=== PATIENT | female | born 1935 | race Caucasian/White ===

== ENCOUNTER → 2018-03-23 | Outpatient (CLI) | payer MEDICARE, OTHER ==
[~2018-03-23] MED LIST: ACIDOPHILUS1 EAC1 PO; ALEN70 PO; ASPI81CH PO; Combigan Eye Dro5 ML OP; Imitrex50 MG; LATA.005SO BOTHEYES; LEVSOD50 PO; LIDO5TP; Lialda1.2 GM PO; MIDOL PO; Norco 5-325 Ta1 EACH PO; RANI150 PO; Toprol Xl25 MG PO; VAGIFEM10 MCG VG
[2018-03-23 14:34] LABS: Candida species (DNA Probe) Negative (NEGATIVE); G. vaginalis (DNA Probe) Positive (NEGATIVE); T. vaginalis (DNA Probe) Negative (NEGATIVE)
== END ==
LOC: LAB 11:57 → LAB SHORT 11:57
PROVIDERS: Obstetrics & Gynecology
DX: N76.0 Acute vaginitis (principal)
CPT/HCPCS: 87480; 87510; 87660

== ENCOUNTER 2020-06-19 15:49 | Inpatient (IN) | payer MEDICARE, OTHER ==
[~2020-06-19] VITALS: Ht 160 cm; Wt 55.5 kg
[~2020-06-19 15:49] MED LIST changes: -Combigan Eye Dro5 ML OP; -LATA.005SO BOTHEYES; -LEVSOD50 PO; -Lialda1.2 GM PO; -Toprol Xl25 MG PO
[2020-06-19 16:34] LABS: BASOPHILS ABSOLUTE AUTO 0.02 K/mm3 (0.00-0.23); BASOPHILS PERCENT AUTO 0 % (0-2); EOSINOPHILS PERCENT AUTO 0 % (0-6); Hematocrit 45.4 % (33.0-51.0); Hemoglobin 14.2 g/dL (11.5-16.0); IMMATURE GRAN ABSOLUTE AUTO 0.02 K/mm3 (0.00-0.10); IMMATURE GRAN PERCENT AUTO 0 % (0-1); LYMPHOCYTES ABSOLUTE AUTO 1.26 K/mm3 (0.84-5.20); LYMPHOCYTES PERCENT AUTO 23 % (21-46); MONOCYTES ABSOLUTE AUTO 0.74 K/mm3 (0.16-1.47); MONOCYTES PERCENT AUTO 14 % (4-13); Mean Corpuscular HGB 29.8 pg (26.0-34.0); Mean Corpuscular HGB Conc 31.3 g/dL (31.5-36.5); Mean Corpuscular Volume 95 fL (80-100); Mean Platelet Volume 10.2 fL (9.1-12.4); NEUTROPHILS ABSOLUTE AUTO 3.37 K/mm3 (1.96-9.15); NEUTROPHILS PERCENT AUTO 62 % (41-73); Platelet Count 168 K/mm3 (150-400); RDW Coefficient Variation 14.1 % (11.7-14.2); Red Blood Cell Count 4.76 M/mm3 (3.80-5.20); White Blood Cell Count 5.41 K/mm3 (4.00-11.30)
[2020-06-19 16:45] LABS: Albumin, Blood 3.7 g/dL (3.4-5.0); Albumin/Globulin Ratio 0.9 (0.8-1.8); Bilirubin, Total 0.4 mg/dL (0.1-1.0); Bun/Creatinine Ratio 17.6 (12.0-20.0); Calcium, Blood 8.8 mg/dL (8.5-10.1); Creatinine, Blood 1.36 mg/dL (0.40-1.00); Globulin, Blood 3.9 g/dL (2.2-4.0); Potassium, Blood 4.9 mmol/L (3.5-5.5); Total Protein, Blood 7.6 g/dL (6.4-8.2)
[2020-06-19 16:50] LABS: International Normalized Ratio 0.98; Prothrombin Time Results 10.5 Sec (9.7-11.5)
[2020-06-19] MEDS ORDERED: Toprol Xl25 MG PO (18:30)
[2020-06-19] MEDS ORDERED: LATA.005SO BOTHEYES (18:30)
[2020-06-19] MEDS ORDERED: EUTHYROX50 MCG PO (18:30)
[2020-06-19] MEDS ORDERED: FAMO20 PO (18:31)
[2020-06-19] MEDS ORDERED: MESALAMINE800 MG PO (18:32)
[2020-06-19] MEDS ORDERED: IPRATROPIUM BRO30 ML (18:41)
[2020-06-19] MEDS ORDERED: Aspir 8181 MG PO (20:25)
[2020-06-19] MEDS ORDERED: COMBIGAN 0.2%-0.5 ML BOTHEYES (20:25)
[2020-06-19] MEDS ORDERED: ACIDOPHILUS1 EAC3 PO (20:27)
[2020-06-20 04:29] LABS: BASOPHILS ABSOLUTE AUTO 0.02 K/mm3 (0.00-0.23); BASOPHILS PERCENT AUTO 0 % (0-2); EOSINOPHILS PERCENT AUTO 0 % (0-6); Hematocrit 43.5 % (33.0-51.0); Hemoglobin 14.1 g/dL (11.5-16.0); IMMATURE GRAN ABSOLUTE AUTO 0.01 K/mm3 (0.00-0.10); IMMATURE GRAN PERCENT AUTO 0 % (0-1); LYMPHOCYTES ABSOLUTE AUTO 1.21 K/mm3 (0.84-5.20); LYMPHOCYTES PERCENT AUTO 24 % (21-46); MONOCYTES ABSOLUTE AUTO 0.69 K/mm3 (0.16-1.47); MONOCYTES PERCENT AUTO 14 % (4-13); Mean Corpuscular HGB 29.9 pg (26.0-34.0); Mean Corpuscular HGB Conc 32.4 g/dL (31.5-36.5); Mean Corpuscular Volume 92 fL (80-100); Mean Platelet Volume 9.6 fL (9.1-12.4); NEUTROPHILS ABSOLUTE AUTO 3.18 K/mm3 (1.96-9.15); NEUTROPHILS PERCENT AUTO 62 % (41-73); Platelet Count 148 K/mm3 (150-400); RDW Coefficient Variation 14.1 % (11.7-14.2); RDW Standard Deviation 47.7 fL (35.1-46.3); Red Blood Cell Count 4.71 M/mm3 (3.80-5.20); White Blood Cell Count 5.11 K/mm3 (4.00-11.30)
[2020-06-20 04:51] LABS: Bun/Creatinine Ratio 17.3 (12.0-20.0); Calcium, Blood 8.9 mg/dL (8.5-10.1); Creatinine, Blood 0.98 mg/dL (0.40-1.00); Potassium, Blood 3.8 mmol/L (3.5-5.5)
--- NOTE | 2020-06-20 06:11 | NUR ---
patient admitted for a possible stroke with left-sided weakness. Patient's left-sided deficit of improved at the hospital and she currently has no deficits. Patient is alert and oriented and neurologically intact to her blood pressure remains high as noted in the charting. patient has an MRI scheduled in the morning to rule out any other possible neurological abnormalities. No cute events or concerns at this time.
--- NOTE | 2020-06-20 12:36 | NUR ---
SHORTLY AFTER ECHO COMPLETE PT REPORTS FEELING WEAK AND STATES RIGHT SIDE OF FACE FEELS FUNNY. STATES RIGHT FACE FEELS NUMB, MOVING ALL FOUR EXTREMETIES AT THIS TIME, CORRECTIONS COUNSELOR EQUAL, NO FACIAL DROOP OR SLURRED SPEECH. PHONED DR. BELTRÁN, MESSAGE LEFT TO CALL U.
--- NOTE | 2020-06-20 13:44 | NUR ---
SPOKE WITH DR. FISHER AT APPROX 1300, HEART RATE CONTINUES TO BE INCREASED TO 150-180, VERBAL ORDER GIVEN FOR 10MG LABETOLOL IV PUSH. AFTER ADMINSTRATION HEART REMAINS IN SINUS TACH, BLOOD PRESSURE DECREASED. UPDATED DR. FISHER, VERBAL ORDER GIVEN FOR DIGOXIN IV 0.25MG. MEDICATED PER ORDERS. HEART RATE POST DIGOXIN 135-150, UPDATED DR. FISHER VIA PHONE, VERBAL ORDER GIVEN FOR 0.5MG ATIVAN IV.
--- NOTE | 2020-06-20 15:27 | NUR ---
Spiritual care visit conducted. Patient is lying in bed and asleep. Patient's spouse, Job, talks with me about the events that led up to patient's hospitalization and what changes have happened since she has arrived. Patient shares about his career in the [employer], their family, their daughter's current fraser with cancer and about their juanjo (they attend [employer]). Job tells me that he is a bit lost and is praying for God's help. Iprovide therapeutic listening, pastoral veterans rehabilitation counselor and prayer. Job responds well and displays evidence of being encouraged. I will continue to remain available to patient and family.
--- NOTE | 2020-06-20 15:37 | NUR ---
REPORT GIVEN TO ELVIRA CALHOUN IN ICU TO ASSUME CARE.
--- NOTE | 2020-06-20 17:44 | NUR ---
SHIFT SUMMARY PT TRANSFERRED TO ICU FROM PCU FOR RAPID HR. PT ADMITTED FOR CVA. PER REPORT FROM QING FELIX, PT c INCREASED HR AT APPROX 1200. PT ARRIVES c RATE 140-180'S. DR FISHER AT BEDSIDE. PT APPEARS LETHARGIC BUT WILL ANSWER QUESTIONS WHEN ASKED REPEATEDLY. PT DENIES PAIN BUT DOES NOT ELABORATE ON SYMPTOMS. PT GIVEN ADENOSINE 6 MG AND 12 MG, RETURNED TO RATE 160'S. CARDIZEM BOLUS AND DRIP STARTED s RESULTS. DR BRADLEY CONSULTED. TROPONIN 0.121, Q6 H ORDERED. AMIODORONE GTT STARTED AT 1 MG/MIN. RATE 130'S, AFIB. LUNGS DIMINISHED IN BASES. WILL CONTINUE TO MONITOR UNTIL REPORT TO ONCOMING NURSE.
--- NOTE | 2020-06-20 18:49 | NUR ---
PT CONVERTED TO NSR AT APPROX 1800. RATE 80'S. BP STABLE. PT ANSWERS QUESTIONS APPROPRIATELY WHEN ASKED MULTIPLE TIMES, SPECIAL EDUCATION SCIENCE TEACHER EQUAL, ORIENTED X 4. FLAT AFFECT.
--- NOTE | 2020-06-20 22:49 | NUR ---
ASSUMED PT CARE AT 1900 FROM ELVIRA HENNESSY PT SLEEPING DURING BEDSIDE REPORT. PT IN NSR WITH HR 80'S; BP'S STABLE, SEE FLOWSHEET. AMIODARONE GTT INFUSING AT 1MG/MIN AND NS AT 75MLS/HR. PT EASILY AROUSABLE WITH VERBAL STIMULI. ALERT AND ORIENTED AND ABLE TO MAKE NEEDS KNOWN. NO FACIAL DROOP OR SLURRED SPEECH NOTED. PT ABLE TO SWALLOW MEDS WHOLE WITH WATER; NO DEFICITS NOTED. PT ASSISTED TO BSC; 2 PERSON ASSIST D/T RIGHT SIDED WEAKNESS. PT NEEDS EDUCATION REGARDING STANDING UP STRAIGHT AND NOT LEANING/REACHING DURING TRANSFERRING; PT DEMONSTRATED UNDERSTANDING. PT IS ABLE TO REPOSITION SELF IN BED. CALL LIGHT WITHIN REACH; SHE IS ABLE TO MAKE HER NEEDS KNOWN.
[2020-06-21 02:12] LABS: BASOPHILS ABSOLUTE AUTO 0.02 K/mm3 (0.00-0.23); BASOPHILS PERCENT AUTO 0 % (0-2); EOSINOPHILS PERCENT AUTO 0 % (0-6); Hematocrit 40.5 % (33.0-51.0); Hemoglobin 13.2 g/dL (11.5-16.0); IMMATURE GRAN ABSOLUTE AUTO 0.01 K/mm3 (0.00-0.10); IMMATURE GRAN PERCENT AUTO 0 % (0-1); LYMPHOCYTES ABSOLUTE AUTO 1.03 K/mm3 (0.84-5.20); LYMPHOCYTES PERCENT AUTO 12 % (21-46); MONOCYTES ABSOLUTE AUTO 1.15 K/mm3 (0.16-1.47); MONOCYTES PERCENT AUTO 13 % (4-13); Mean Corpuscular HGB 30.2 pg (26.0-34.0); Mean Corpuscular HGB Conc 32.6 g/dL (31.5-36.5); Mean Corpuscular Volume 93 fL (80-100); NEUTROPHILS ABSOLUTE AUTO 6.57 K/mm3 (1.96-9.15); NEUTROPHILS PERCENT AUTO 75 % (41-73); Platelet Count 143 K/mm3 (150-400); RDW Coefficient Variation 14.3 % (11.7-14.2); RDW Standard Deviation 48.1 fL (35.1-46.3); Red Blood Cell Count 4.37 M/mm3 (3.80-5.20); White Blood Cell Count 8.78 K/mm3 (4.00-11.30)
[2020-06-21 02:38] LABS: Alanine Aminotransfer (ALT/SGP 17 U/L (12-78); Albumin, Blood 3.4 g/dL (3.4-5.0); Alk Phos 56 U/L (50-136); Anion Gap 6 mmol/L (6-16); Aspartate Aminotrans (AST/SGOT 24 U/L (12-37); Bilirubin, Total 0.9 mg/dL (0.1-1.0); Blood Urea Nitrogen 13 mg/dL (8-24); Bun/Creatinine Ratio 15.7 (12.0-20.0); CHOL/HDL RATIO 2.7; CO2, Blood 25 mmol/L (21-32); Calcium, Blood 8.5 mg/dL (8.5-10.1); Chloride, Blood 110 mmol/L (98-108); Cholesterol 178 mg/dL (50-200); Creatinine, Blood 0.83 mg/dL (0.40-1.00); Globulin, Blood 3.4 g/dL (2.2-4.0); Glomerular Filtration Rate >60 (60-); Glucose, Blood 113 mg/dL (70-99); HDL Cholesterol 67 mg/dL (>39); LDL/HDL RATIO 1.4; Low Density Lipoprotein Chol 96 mg/dL (0-110); Potassium, Blood 3.6 mmol/L (3.5-5.5); Sodium, Blood 141 mmol/L (136-145); Total Protein, Blood 6.8 g/dL (6.4-8.2); Triglycerides 75 mg/dL (30-160); Very Low Density Lipoprot Chol 15 mg/dL (6-32)
--- NOTE | 2020-06-21 05:41 | NUR ---
END OF SHIFT SUMMARY NO SIGNIFICANT CHANGES NOTED THIS SHIFT. AMIODARONE GTT CONTINUES AT 0.5MG/MIN, WHICH WAS DECREASED FROM 1MG/MIN AT 2315. NSR WITH HR 80'S; BP'S STABLE, SEE FLOWSHEET. DID ADMINISTER 10MG OF HYDRALAZINE IV PER ORDERS D/T SBP 190'S. PT DENIES ANY CHEST PAIN, WELL ANY HEADACHE PAIN. SHE REMAINS ALERT AND ORIENTED AND ABLE TO MAKE NEEDS KNOWN. NO FACIAL DROOP NOTED. PT HAS CLEAR SPEECH. NO DYSPYAGIA NOTED. TAKES MEDICATIONS WHOLE WITH WATER. SHE IS VERY WEAK ON HER RIGHT SIDE. NEEDS FREQUENT CUEING AND DIRECTION WITH TRANSFERS TO STAND TALL AND TAKE STEPS BEFORE LEANING/REACHING PT'S KNEES APPEAR TO WANT TO "GIVE WAY" UP TO BEDSIDE COMMODE TO VOID. SHE IS CURRENTLY UP IN CHAIR. STATED SHE HAD A DIFFICULT TIME GETTING COMFORTABLE LAST NIGHT AND DIDN'T SLEEP VERY WELL. NS INFUSING AT 75MLS/HR. CALL LIGHT WITHIN REACH; WILL CONTINUE TO MONITOR UNTIL REPORT IS HANDED OFF TO ONCOMING RN.
--- NOTE | 2020-06-21 07:15 | NUR ---
BEGINNING OF SHIFT Assumed care of pt at 0700. Bedside report received from Rhett FELIX. Pt on room air. SR per monitor. Amiodarone at 0.5 mg/min. Pt to bed from chair requiring moderate assistance and verbal cues. Shuffling gait. Pt states main concern is she wants breakfast.
--- NOTE | 2020-06-21 08:22 | NUR ---
DR FISHER IN TO SEE PT Provider states pt can be PCU status.
--- NOTE | 2020-06-21 16:25 | NUR ---
PT CAME TO ROOM PCU 13 VIA WHEELCHAIR, SHE IS ABLE TO TRANSFER HERSELF TO THE BED, A/OX3, VERY PLEASANT AND COOPERATIVE WITH CARE, FOLLOWS COMMANDS WELL, DENIES COMPLAINTS, STATES SHE FEELS MUCH BETTER THAN SHE DID YESTERDAY, ICE WATER AND WARM BLANKET PROVIDED, CALL LIGHT IN REACH.
--- NOTE | 2020-06-21 16:30 | NUR ---
SUMMARY / TRANSFER TO PCU Pt A&O x 4. Pt very active today making several trips to toilet, sitting up in chair, and going for walks. Pt on room air. Lungs clear t/o on auscultation. SR-ST with HR ranging from 95-105. BP stable. Pt on amiodarone drip at 0.5 mg/min for entire shift. Pt's spouse visited for 4-5 hours today. Pt departed from ICU 5 at 1622 accompanied by PCT Lynne. Pt departed via wheelchair. Amiodarone drip continued on transfer. Telephone report given to Karin Frazier RN. Chart, medications, and belongings transferred with patient.
[2020-06-22 04:25] LABS: BASOPHILS ABSOLUTE AUTO 0.03 K/mm3 (0.00-0.23); BASOPHILS PERCENT AUTO 0 % (0-2); EOSINOPHILS PERCENT AUTO 0 % (0-6); Hematocrit 43.9 % (33.0-51.0); Hemoglobin 14.1 g/dL (11.5-16.0); IMMATURE GRAN ABSOLUTE AUTO 0.03 K/mm3 (0.00-0.10); IMMATURE GRAN PERCENT AUTO 0 % (0-1); LYMPHOCYTES ABSOLUTE AUTO 1.01 K/mm3 (0.84-5.20); LYMPHOCYTES PERCENT AUTO 11 % (21-46); MONOCYTES ABSOLUTE AUTO 1.07 K/mm3 (0.16-1.47); MONOCYTES PERCENT AUTO 12 % (4-13); Mean Corpuscular HGB 29.7 pg (26.0-34.0); Mean Corpuscular HGB Conc 32.1 g/dL (31.5-36.5); Mean Corpuscular Volume 92 fL (80-100); Mean Platelet Volume 10.3 fL (9.1-12.4); NEUTROPHILS ABSOLUTE AUTO 6.86 K/mm3 (1.96-9.15); NEUTROPHILS PERCENT AUTO 76 % (41-73); Platelet Count 155 K/mm3 (150-400); RDW Coefficient Variation 14.4 % (11.7-14.2); RDW Standard Deviation 49.3 fL (35.1-46.3); Red Blood Cell Count 4.75 M/mm3 (3.80-5.20)
[2020-06-22 04:50] LABS: Anion Gap 5 mmol/L (6-16); Blood Urea Nitrogen 11 mg/dL (8-24); Bun/Creatinine Ratio 13.7 (12.0-20.0); CO2, Blood 26 mmol/L (21-32); Calcium, Blood 8.9 mg/dL (8.5-10.1); Chloride, Blood 109 mmol/L (98-108); Glomerular Filtration Rate >60 (60-); Glucose, Blood 104 mg/dL (70-99); Potassium, Blood 3.8 mmol/L (3.5-5.5); Sodium, Blood 140 mmol/L (136-145)
--- NOTE | 2020-06-22 05:21 | NUR ---
END OF SHIFT SUMMARY NO ACUTE CHANGES THIS SHIFT. PT AXO. HAS PERIODS OF HTN >165, SEE EMAR. HYDRALZINE EFFECTIVE AT CONTROLLING BP. HAS HAD HEADACHES AT TIMES T/O SHIFT. ACETEMINOPHEN EFFECTIVE. PT REMAINS IN SR 90'S HR. DENIES CP. AMIODORONE GTT COMPLETED ON SHIOFT CHANGE. PT HAS DENIED CP THIS SHIFT. HAS SLEPT T/ SHIFT. SWELLING DECREASED TO BILAT AC'S POST INFILTRATION. WILL CONTINUE TO MONITOR UNTIL SHIFT CHANGE.
--- NOTE | 2020-06-22 07:47 | NUR ---
PROVIDER 0713 DR FISHER CALLED REGARDING PT'S HR INCREASE FROM SR 90'S TO HR OF 160'S TO 170'S SUSTAINING. PT ASYMPTOMATIC AT THIS POINT. BP STABLE. DIGOXIN 0.25 IV ORDER RECEIVED AND ADMINISTERED. 15 MINUTES LATER, PT'S HR CONTINUES >150'S AND PT BECOMING SYMPTOMATIC. AMIODORONE GTT ORDERED. AWAITING PHARMACY. MATERIAL HANDLER 1ST SHIFT JAMIE TO ROOM.
--- NOTE | 2020-06-22 20:22 | NUR ---
SHIFT SUMMARY PT A&Ox4; CALM AND COOPERATIVE WITH CARE. PT RESTING IN BED DURING SHIFT, UP 1 PERSON ASSIST TO BSC. RIGHT SIDED WEAKNESS NOTED; PT CONVERTED FROM SR TO AFIB/FLUTTER THIS AM; NOC SHIFT NOTIFIED DR FISHER; DIGOXIN GIVEN; AMIO GTT STARTED THIS AM AND PO METOPROLOL PER ORDERS. HYPERTENSIVE THIS AM. PT SOB AT REST THIS AM, PLACED 2 L O2 VIA NC; TITRATED TO RA; SPO2 >92% ON RA THIS EVENING. PT DENIES PAIN, CHEST PAIN/PRESSURE, NASUEA AND DIZZINESS. DR HADDAD NOTIFIED OF HEART RATE/RHYTHM; NEW ORDER TO HOLD LEXISCAN TODAY AND MEDICATION ORDERS ENTERED. PT HR TRENDING DOWN THIS AFTERNOON FROM 130'S TO 70'S. BP TRENDING DOWN. NO OTHER ACUTE CHANGES NOTED DURING SHIFT. REPORT GIVEN TO ONCOMING RN.
--- NOTE | 2020-06-23 05:46 | NUR ---
END OF SHIFT SUMMARY NO ACUTE CHANGES THIS SHIFT. VSS REMAINS ON AMIODARONE GTT; INFUSING AT MAINTENANCE RATE. BP STABLE. PT DENIES CP/PRESSURE, DID HAVE BOUT OF HEARTBURN THAT SHE WAS INITIALLY WORRIED WAS CARDIAC RELATED, RESOLVED W/OUT INTERVENTION. POWERGLIDE PATENT. REMAINS SR 80'S. PT NPO FOR POSSIBLE STRESS TEST THIS AM. NO CHANGES WITH NEURO STATUS NOTED. R SIDE DEFICIT STILL PRESENT BUT IMPROVING. WILL CONTINUE TO MONITOR UNTIL SHIFT CHANGE.
--- NOTE | 2020-06-23 19:21 | NUR ---
SHIFT SUMMARY PT A&Ox4; CALM AND COOOPERATIVE WITH CARE. PT 1 PERSON ASSIST WITH WALKER. PT REPORTS ARTHRIC PAIN TO BILATERAL WRIST; MEDICATED PER EMAR. PT SOB WITH EXERTION; SPO2>92% ON RA. PT DENIES NAUSEA DURING SHIFT, REPORTS DECREASED APPETITE. HR 50'S TO 70'S T/O SHIFT; NOTIIFED DR HADDDA REGARDING 50'S HR; OTHER VSS. NO OTHER ACUTE CHANGES NOTED. REPORT GIVEN TO ONCOMING RN.
[2020-06-24 05:25] LABS: BASOPHILS ABSOLUTE AUTO 0.01 K/mm3 (0.00-0.23); BASOPHILS PERCENT AUTO 0 % (0-2); EOSINOPHILS ABSOLUTE AUTO 0.01 K/mm3 (0.00-0.68); EOSINOPHILS PERCENT AUTO 0 % (0-6); Hematocrit 39.8 % (33.0-51.0); Hemoglobin 12.7 g/dL (11.5-16.0); IMMATURE GRAN ABSOLUTE AUTO 0.01 K/mm3 (0.00-0.10); IMMATURE GRAN PERCENT AUTO 0 % (0-1); LYMPHOCYTES ABSOLUTE AUTO 0.96 K/mm3 (0.84-5.20); LYMPHOCYTES PERCENT AUTO 18 % (21-46); MONOCYTES ABSOLUTE AUTO 0.71 K/mm3 (0.16-1.47); MONOCYTES PERCENT AUTO 14 % (4-13); Mean Corpuscular HGB 29.9 pg (26.0-34.0); Mean Corpuscular HGB Conc 31.9 g/dL (31.5-36.5); Mean Corpuscular Volume 94 fL (80-100); Mean Platelet Volume 10.3 fL (9.1-12.4); NEUTROPHILS ABSOLUTE AUTO 3.56 K/mm3 (1.96-9.15); NEUTROPHILS PERCENT AUTO 68 % (41-73); Platelet Count 169 K/mm3 (150-400); RDW Coefficient Variation 14.1 % (11.7-14.2); RDW Standard Deviation 48.6 fL (35.1-46.3); Red Blood Cell Count 4.25 M/mm3 (3.80-5.20); White Blood Cell Count 5.26 K/mm3 (4.00-11.30)
[2020-06-24 05:45] LABS: Alanine Aminotransfer (ALT/SGP 21 U/L (12-78); Albumin/Globulin Ratio 0.9 (0.8-1.8); Alk Phos 50 U/L (50-136); Anion Gap 3 mmol/L (6-16); Aspartate Aminotrans (AST/SGOT 31 U/L (12-37); Bilirubin, Total 1.1 mg/dL (0.1-1.0); Blood Urea Nitrogen 16 mg/dL (8-24); Bun/Creatinine Ratio 17.9 (12.0-20.0); CO2, Blood 28 mmol/L (21-32); Calcium, Blood 8.6 mg/dL (8.5-10.1); Chloride, Blood 107 mmol/L (98-108); Creatinine, Blood 0.89 mg/dL (0.40-1.00); Globulin, Blood 3.5 g/dL (2.2-4.0); Glomerular Filtration Rate >60 (60-); Glucose, Blood 97 mg/dL (70-99); Potassium, Blood 3.7 mmol/L (3.5-5.5); Sodium, Blood 138 mmol/L (136-145); Total Protein, Blood 6.5 g/dL (6.4-8.2)
--- NOTE | 2020-06-24 06:02 | NUR ---
END OF SHIFT SUMMARY NO ACUTE CHANGES THIS SHIFT. VSS. HR DID BECOME ELLYN HIGH 40'S BUT DID NOT MAINTAIN LONG AND EVENTUALLY SETTLED 50'S TO 60'S. R SIDED DEFICIT SHOWIMG IMPROVEMENT. PT NPO FOR POSSIBLE STRESS TEST THIS AM. POWERGLIDE REMAINS IN PLACE, PATENT, AND DRAWS BLOOD. WILL CONTINUE TO MONITOR UNTIL SHIFT CHANGE.
--- NOTE | 2020-06-24 15:43 | NUR ---
Spiritual care visit conducted. I realize since my last note that patient's spouse's name is Sloan. Patient tell me about her 40 year marriage to Sloan, about her stress tests, about her daughter and her daughter's fraser with cancer. Patient talks about her juanjo and her hope for not having clogged arteries. I listen empathically, normalize patient's experience, reinforce helpful attitudes and practices and provide prayer. Patient responds well and shows signs of improved juanjo. I will continue to remain available to patient and family.
--- NOTE | 2020-06-24 17:42 | NUR ---
SHIFT SUMMARY; A/A/OX4 THROUGHOUT SHIFT. AMBULATED IN HALLWAY WITH PT AND WALKER, MOVES ALL FOUR EXTREMETIES, SUPERVISOR LIQUID YEAST EQUAL, PERRL. STATES FEELS SOMEWHAT WEAKER ON RIGHT, NO FACIAL DROOP OR DIFFICULTY WITH SPEECH. HR REMAINED IN SINUS IN 60'S THROUGHOUT SHIFT. STRESS TEST STARTED TODAY AND WILL FINISH TOMORROW. WILL CONTINUE TO TREAT AND MONITOR UNTIL CHANGE OF SIFT.
--- NOTE | 2020-06-25 05:23 | NUR ---
END OF SHIFT SUMMARY NO ACUTE CHANGES THIS SHIFT. VSS. REMAINS SR 60'S TO 70'S. BP WNL. PT NPO FOR UPCOMING SECOND PORTION OF STRESS TEST. POWERGLIDE FLUSHING WELL. OTHERWISE, PT HAS BEEN RESTING T/O NIGHT WITH LITTLE COMPLAINT. WILL CONTINUE TO MONITOR UNTIL SHIFT CHANGE.
--- NOTE | 2020-06-25 11:53 | NUR ---
Spiritual care visit conducted. Patient is sitting on a chair and alert and patient's spouse, Sloan, is present. They tell me many stories of their careers, their travels and their marriage. They are grateful and kind. I pray for patient's peace as she has the second half of her stress test today and thank God with them for the remarkable improvement the patient is experiencing. I will continue to remain available to patient and family.
--- NOTE | 2020-06-25 17:39 | NUR ---
SHIFT SUMMARY PT A&Ox4; CALM AND COOPERATIVE WITH CARE. PT RESTING IN BED, UP IN CHAIR AND WALKING IN ROOM WITH 1 PERSON ASSIST. PT DENIES PAIN, SOB, NASUEA AND DIZZINESS. PT TELE SB-SR 50-70'S T/O SHIFT. SPO2 >92% ON RA. COMPLETED SECOND PART OF STRESS TEST DURINGS SHIFT. VSS. NO OTHER ACUTE CHANGES NOTED DURING SHIFT. WILL CONTINUE TO MONITOR UNITL REPORT GIVEN TO ONCOMING RN.
[2020-06-25] MEDS ORDERED: METO100ER PO (18:13)
[2020-06-25] MEDS ORDERED: ELIQUIS5 MG PO (18:14)
[2020-06-25] MEDS ORDERED: ATOR20 PO (18:14)
[2020-06-25] MEDS ORDERED: Amiodarone HCl200 MG PO (18:14)
--- NOTE | 2020-06-25 19:32 | NUR ---
PLANS FOR DISCHARGE THIS EVENING; WHILE EDUCATED PT ON DISCHARGE INSTRUCTIONS PT STATES SHE HAS A "SLIGHT HEADACHE"; STATES IT IS SIMILAR TO THE HEADACHE SHE CAME INTO THE ER FOR. PT APPEARS TO NEED TO SEARCH FOR WORDS WHILE ASKING QUESTIONS. PT STATES SHE DOES NOT FEEL WEAKNESS HAS WORSED AND NO CHANGES TO BILATERAL COMBAT SYSTEMS OPERATOR MINE WARFARE; PT BP 190/80, HR 57, RESP 18, TEMP 98.9 AND SPO2 96% ON RA. NOTIFIED [employer] EQUIPMENT DRIVER; NEW ORDERS TO HOLD DISCHARGE AND MANAGE BP. REPORT GIVEN TO ELVIRA HUGO ASSUMNG CARE OF PATIENT.
--- NOTE | 2020-06-26 07:02 | NUR ---
patient initially admitted for possible CVA. The patient was getting ready to be discharged when she suddenly had a headache along with a very high blood pressure is noted in the vital signs. Due to that event the patient was kept one more night for observation and neurological assessments but no changes were noted in the patient's blood pressure remained under 160 systolic and no more episodes of headaches or neurological deficiencies. Plan for this patient is to go home today.
--- NOTE | 2020-06-26 11:42 | NUR ---
INITIAL PAL CARE VISIT TO PCU 13 - Pt was admitted to the hospital last week with a new dx/event of CVA and sl elev troponin. She has PMH of HTN and reported sudden onset of ORELLANA and lower ext ataxia. She has been working with therapies and is medically ready for d/c per PN. Pt and confirm this. has been here working with PT on caregiver training also. They are both very motivated and participatory in pt's care and planning for homegoing. Pt is 84 year old who has been very active with her in their fpc. They volunteer at [employer]. Pt's is nearing 89 but is in good health & active after CABG and cardiac stenting several years ago. Pt was sleeping when I arrived and mentioned pt has had trouble getting a good night's rest here. She woke easily even with low voices. She and Sloan are looking forward to being home. They have practiced for the four steps into their home and removed throw rugs and runners for her safety with using the FWW. She denies pain. She expressed worry for the potential of a changed lifestyle for her and for her . We talked about any concerns re: homegoing or s/s. She mentioned concern for getting up to BR at night and crossing over different surfaces with her walker, ie carpet and then tile in the low light. Recommended picking up a bedside commode for night time use and also to place over stool during the day for increased stability, height and arm supports when pt using the toilet. Pt and agreeable and will either rent or purchase a BSC if insurance does not cover. Pt will have HH services in follow up per pt/. She talked about being realistic with their advanced aged but wanting to be as independent and well as possible. Time spent encouraging and supporting Nirali and Sloan. She reiterated her prefered code status as DNR. Nurse came in to administer eye drops during our visit. Pt and plan to have lunch here and then go home. They have been problem solving together and supporting each other well.
[2020-06-26] MEDS ORDERED: HYDCHL25 PO (12:13)
--- NOTE | 2020-06-26 17:08 | NUR ---
DISCHARGE SUMMARY PT A&Ox4;CALM AND COOPERATIVE WITH CARE. PT RESTING IN BED; SBA TO BATHROOM AND CHAIR. PT DENIES PAIN, HEADACHE, CHEST PAIN/PRESSURE, SOB, NASUEA AND DIZZINESS. HR 50-70'S T/O SHIFT; PER HIGH SCHOOL ACADEMIC COACH PT DIPPED TO 48 DURING SHIFT, NOITILOUIS ARROYO; NEW ORDER TO CHANGE DISCHARGE MEDICATION METOPROLOL SUCCUNATE FROM 100MG TO 50 MG DAILY. ELEVATED BP NOTED; TERNDING DOWN THIS AFTERNOON. SPO2 >90% ON RA. OTHER VSS. NO OTHER ACUTE CHANGES NOTED DURING SHIFT. PT EDUCATED ON DISCAHRGE INSTRUCTIONS, MEDICATIONS AND FOLLOW UP APPOINTMENTS. PT GOING HOME WITH HOME HEALTH. [facility]. PRESCRIPTIONS CALLED TO [facility] IN [place] PER PT REQUEST. PT LEFT ROOM VIA WHEELCHAIR AT 1417.
== END 2020-06-26 14:17 | disposition home health service (06) | DRG 66 ==
LOC: ER 15:49 → PCU 15:50 → ICUE 16:12 → PCU 20:56 → ICUE 06-20 15:13 → PCU 06-20 16:12 → ICUE 06-20 16:12 → PCU 06-21 16:23
PROVIDERS: Internal Medicine; Nurse Practitioner Acute Care; Physician Assistant; ADMIT Hospitalist
DX: I63.9 Cerebral infarction, unspecified (principal); Z87.891 Personal history of nicotine dependence; Z79.82 Long term (current) use of aspirin; I10 Essential (primary) hypertension; E03.9 Hypothyroidism, unspecified; D69.6 Thrombocytopenia, unspecified; I34.0 Nonrheumatic mitral (valve) insufficiency; I48.0 Paroxysmal atrial fibrillation; Z66 Do not resuscitate; I48.91 Unspecified atrial fibrillation; M19.90 Unspecified osteoarthritis, unspecified site
CPT/HCPCS: 36415; 70450; 70496; 70498; 70551; 78452; 80048; 80053; 80061; 84443; 84484; 85025; 85610; 85730; 93005; 93010; 93017; 93306; 96374; 96375; 97110; 97112; 97116; 97162; 97165; 97530; 97535; 99285-25; A9270; A9270-GY; A9500; C1751; G0378; J0153; J0282; J0360; J0706; J0780; J1160; J1200; J2060; J2785; J7030; J7060; Q9967

== ENCOUNTER 2021-01-20 08:44 | Observation (INO) | payer MEDICARE, OTHER ==
[~2021-01-20] VITALS: Ht 160 cm; Wt 52.2 kg
[~2021-01-20 08:44] MED LIST changes: +ACIDOPHILUS1 EAC3 PO; +ATOR20 PO; +Amiodarone HCl200 MG PO; +Aspir 8181 MG PO; +COMBIGAN 0.2%-0.5 ML BOTHEYES; +ELIQUIS5 MG PO; +EUTHYROX50 MCG PO; +FAMO20 PO; +HYDCHL25 PO; +IPRATROPIUM BRO30 ML; +LATA.005SO BOTHEYES; +MESALAMINE800 MG PO; +METO100ER PO; +Toprol Xl25 MG PO
[2021-01-20 09:47] LABS: BASOPHILS ABSOLUTE AUTO 0.01 K/mm3 (0.00-0.23); BASOPHILS PERCENT AUTO 0 % (0-2); EOSINOPHILS ABSOLUTE AUTO 0.01 K/mm3 (0.00-0.68); EOSINOPHILS PERCENT AUTO 0 % (0-6); Hemoglobin 14.4 g/dL (11.5-16.0); IMMATURE GRAN ABSOLUTE AUTO 0.03 K/mm3 (0.00-0.10); IMMATURE GRAN PERCENT AUTO 0 % (0-1); LYMPHOCYTES ABSOLUTE AUTO 0.58 K/mm3 (0.84-5.20); LYMPHOCYTES PERCENT AUTO 7 % (21-46); MONOCYTES ABSOLUTE AUTO 0.56 K/mm3 (0.16-1.47); MONOCYTES PERCENT AUTO 7 % (4-13); Mean Corpuscular HGB 30.5 pg (26.0-34.0); Mean Corpuscular Volume 95 fL (80-100); Mean Platelet Volume 10.3 fL (9.1-12.4); NEUTROPHILS ABSOLUTE AUTO 7.23 K/mm3 (1.96-9.15); NEUTROPHILS PERCENT AUTO 86 % (41-73); Platelet Count 153 K/mm3 (150-400); RDW Coefficient Variation 13.7 % (11.7-14.2); RDW Standard Deviation 48.4 fL (35.1-46.3); Red Blood Cell Count 4.72 M/mm3 (3.80-5.20); White Blood Cell Count 8.42 K/mm3 (4.00-11.30)
[2021-01-20 09:58] LABS: Alanine Aminotransfer (ALT/SGP 159 U/L (12-78); Albumin, Blood 3.4 g/dL (3.4-5.0); Albumin/Globulin Ratio 0.9 (0.8-1.8); Alk Phos 104 U/L (50-136); Anion Gap 8 mmol/L (6-16); Aspartate Aminotrans (AST/SGOT 170 U/L (12-37); Bilirubin, Total 0.8 mg/dL (0.1-1.0); Blood Urea Nitrogen 27 mg/dL (8-24); Bun/Creatinine Ratio 21.8 (12.0-20.0); CO2, Blood 27 mmol/L (21-32); Calcium, Blood 8.9 mg/dL (8.5-10.1); Chloride, Blood 108 mmol/L (98-108); Creatinine, Blood 1.24 mg/dL (0.40-1.00); Globulin, Blood 3.9 g/dL (2.2-4.0); Glomerular Filtration Rate 44 (60-); Glucose, Blood 147 mg/dL (70-99); Magnesium, Blood 1.9 mg/dL (1.6-2.4); Potassium, Blood 3.4 mmol/L (3.5-5.5); Sodium, Blood 143 mmol/L (136-145); Total Protein, Blood 7.3 g/dL (6.4-8.2); Troponin I <0.015 ng/mL (0.000-0.040)
[2021-01-20 11:10] LABS: Free Thyroxine 1.61 ng/dL (0.70-1.60); Thyroid Stimulating Hormone 2.17 uIU/mL (0.360-4.800)
[2021-01-20] MEDS ORDERED: TRAZ50 PO (12:50)
[2021-01-20] MEDS ORDERED: MESALAMINE PO (12:51)
[2021-01-20] MEDS ORDERED: METO50ER PO (12:51)
[2021-01-20] MEDS ORDERED: FAMO20 PO (12:52)
[2021-01-20] MEDS ORDERED: BRIMONIDINE TART5 M2 BOTHEYES (12:53)
[2021-01-20] MEDS ORDERED: LATANOPROST2.5 M2 BOTHEYES (12:53)
[2021-01-20] MEDS ORDERED: ISTALOL2.5 M1 BOTHEYES (12:53)
--- NOTE | 2021-01-20 14:44 | NUR ---
CALLED THE EMERGENCY ROOM AND THE RN WILL CALL ME BACK FOR A REPORT
[2021-01-20] MEDS ORDERED: Preservision S1 EACH PO (17:03)
--- NOTE | 2021-01-20 17:32 | NUR ---
PT IS AOX4; CALLS APPROPRIATELY. PT ADMITTED FOR SYMPTOMATIC BRADYCARDIA. PT CAME HERE WITH WEAKNESS, NEAR SYNCOPAL EPISODE AND HR OF 33, AND SOB. PT STATED SHE FELT HEART PALPITATE. PT ALSO STATED THAT SHE HAD A RECENT FALL AFTER HER CVA. PT HAD A HX OF HTN, CVA ON MAY R SIDED; L LUMPECTOMY, NO DEFICITS BUT N/T ON HER BLE. PT STATED SHE HAS NOT BEEN SLEEPING WELL THAT HER PCP PRESCRIBED HER WITH TRAZADONE. SHE STATED THAT IT DOES NOT WORK. PT HAS BP WHEN SHE CAME UP HERE TO MEDICAL WAS SBP 119; CALLED DR ARROYO AND HOLD AMIODARONE PER . PT C/O HEADACHE; RECHECKED THE BP WAS AROUND SBP OF 150'S; MEDICATED FOR PAIN PER EMAR. PT IS ON FLUID RUNNING AT 100ML/HR. PT IS ONE P ASSIST. SHE STATED SHE HAS A CANE BUT DOES NOT USE IT BECAUSE SHE DOES NOT THINK OF USING IT; ALTHOUGH SHE UNDERSTAND THAT WITH HER WEAKNESS RIGHT NOW SHE MIGHT NEED SOME ASSISTANCE OF SOME SORT. PT IS ON TELE RUNNING AT NSR @70S, DENIES SOB, CP OR NAUSEA. AT BEDSIDE. AND HER LIVES AT HOME. BED IS IN THE LOWEST POSITION AND CALL LIGHT WITHIN REACH.
--- NOTE | 2021-01-21 04:19 | NUR ---
SHIFT SUMMARY- PT. A&OX4, W/WEAKNESS, A 1 ASSIST WITH AMBULATION. HAD NO COMPLAINTS OF PAIN OR DISCOMFORT DURING THE NIGHT. SLEPT ON/OFF T/O THE SHIFT, NO APPARENT DISTRESS NOTED. VITALS HAVE BEEN STABLE, ON TELE AT SR IN THE 60'S. PT. DENIED ANY NEEDS, CALLS APPROPRIATELY AND ABLE TO MAKE NEEDS KNOWN. CALL LIGHT WITHIN REACH AND SIDE RAILS UPX2. WILL CONT TO MONITOR.
[2021-01-21 05:27] LABS: Albumin, Blood 2.9 g/dL (3.4-5.0); Albumin/Globulin Ratio 0.9 (0.8-1.8); Bilirubin, Total 0.7 mg/dL (0.1-1.0); Bun/Creatinine Ratio 19.8 (12.0-20.0); Calcium, Blood 8.4 mg/dL (8.5-10.1); Creatinine, Blood 1.06 mg/dL (0.40-1.00); Globulin, Blood 3.2 g/dL (2.2-4.0); Potassium, Blood 3.7 mmol/L (3.5-5.5); Total Protein, Blood 6.1 g/dL (6.4-8.2)
--- NOTE | 2021-01-21 19:13 | NUR ---
SHIFT SUMMARY PT AxOx4. PLEASANT AND COOPERATIVE WITH CARE. INDEPENDENT IN THE ROOM. GOOD APPETITE. PER [employer], TELE RUNNING SR 65, BBB. PT AND OT EVAL TODAY. SPIRITUAL CARE AND ALSO IN ROOM FOR VISIT TODAY. PLAN PENDING POSS CARDIO CONSULT, AND CONSIDERATION FOR PACEMAKER. PT CURRENTLY DENIES ANY NEEDS AT THIS TIME. VITALS REVIEWED. CALL LIGHT IN REACH.
[2021-01-22 05:23] LABS: Hematocrit 39.2 % (33.0-51.0); Hemoglobin 12.5 g/dL (11.5-16.0); Mean Corpuscular HGB 30.4 pg (26.0-34.0); Mean Corpuscular HGB Conc 31.9 g/dL (31.5-36.5); Mean Corpuscular Volume 95 fL (80-100); Mean Platelet Volume 10.7 fL (9.1-12.4); Platelet Count 158 K/mm3 (150-400); RDW Coefficient Variation 14.1 % (11.7-14.2); RDW Standard Deviation 49.4 fL (35.1-46.3); Red Blood Cell Count 4.11 M/mm3 (3.80-5.20); White Blood Cell Count 4.45 K/mm3 (4.00-11.30)
[2021-01-22 05:56] LABS: Anion Gap 6 mmol/L (6-16); Blood Urea Nitrogen 22 mg/dL (8-24); Bun/Creatinine Ratio 23.4 (12.0-20.0); CO2, Blood 27 mmol/L (21-32); Calcium, Blood 8.5 mg/dL (8.5-10.1); Chloride, Blood 109 mmol/L (98-108); Creatinine, Blood 0.94 mg/dL (0.40-1.00); Glomerular Filtration Rate >60 (60-); Glucose, Blood 97 mg/dL (70-99); Magnesium, Blood 1.9 mg/dL (1.6-2.4); Phosphorus, Blood 2.8 mg/dL (2.5-4.9); Potassium, Blood 3.9 mmol/L (3.5-5.5); Sodium, Blood 142 mmol/L (136-145)
--- NOTE | 2021-01-22 08:01 | NUR ---
Patient slept through night only waking for lab. Nirali remained sinus rhythm with scattered PAC's in the 60's most of night. No complaints of SOB, pain or palpitations
[2021-01-22] MEDS ORDERED: TYLENOL325 MG PO (14:58)
[2021-01-22] MEDS ORDERED: LOW DOSE ASPIRI81 MG PO (15:00)
[2021-01-22] MEDS ORDERED: Aspir 8181 MG PO (15:01)
[2021-01-22] MEDS ORDERED: Preservision S1 EACH PO (15:07)
--- NOTE | 2021-01-22 15:49 | NUR ---
DISCHARGE INSTRUCTIONS AND EDUCATIONAL MATERIAL REVIEWED WITH THE PATIENT. ALL QUESTIONS ANSWERED. IV DISCONTINUED; TELE REMOVED AND RETURNED TO THE TELE MONITOR. PATIENT WAS FITTED WITH A CARDAC VEST. MEDICATIONS FROM THE PHARMACY RETURNED. PATIENT DISCHARGED HOME WITH AT 1545. PICKLING TANK OPERATOR ESCORTED OUT IN WHEEL CHAIR BY PICKLING TANK OPERATOR.
== END 2021-01-22 15:45 | disposition home or self-care (01) ==
LOC: ER 08:44 → ERHOLD 08:45 → MEDS 08:45
PROVIDERS: Emergency Medicine; Family Medicine; Nurse Practitioner Acute Care; ADMIT Internal Medicine
DX: R00.1 Bradycardia, unspecified (principal); N17.9 Acute kidney failure, unspecified; R51.9 Headache, unspecified; R74.01 Elevation of levels of liver transaminase levels; I16.0 Hypertensive urgency; E86.0 Dehydration; I10 Essential (primary) hypertension; I48.0 Paroxysmal atrial fibrillation; E03.9 Hypothyroidism, unspecified; Z79.01 Long term (current) use of anticoagulants; Z66 Do not resuscitate; Z87.891 Personal history of nicotine dependence; Z85.3 Personal history of malignant neoplasm of breast; Z86.73 Personal history of transient ischemic attack (TIA), and cerebral infarction without residual deficits; Z79.82 Long term (current) use of aspirin
CPT/HCPCS: 36415; 70450; 71046; 80048; 80053; 83735; 84100; 84439; 84443; 84484; 85025; 85027; 93005; 93010; 93246; 96365; 96366; 96375; 97110; 97116; 97162; 97165; 97530; 99285-25; A9270; G0378; J0360; J3475; J7030

== ENCOUNTER → 2021-08-01 | Outpatient (CLI) | payer MEDICARE, OTHER ==
[~2021-08-01] MED LIST changes: +BRIMONIDINE TART5 M2 BOTHEYES; +ISTALOL2.5 M1 BOTHEYES; +LATANOPROST2.5 M2 BOTHEYES; +LOW DOSE ASPIRI81 MG PO; +MESALAMINE PO; +METO50ER PO; +Preservision S1 EACH PO; +TRAZ50 PO; +TYLENOL325 MG PO
== END | disposition home or self-care (01) ==
LOC: LAB 09:40 → LAB SHORT 09:40
DX: J47.9 Bronchiectasis, uncomplicated (principal)
CPT/HCPCS: 87015; 87116; 87206

== ENCOUNTER → 2021-08-06 | Outpatient (CLI) | payer MEDICARE, OTHER | END | disposition home or self-care (01) | LOC: LAB 11:30 → LAB SHORT 11:30 → LAB FUT 07-10 09:45 | DX: J47.9 Bronchiectasis, uncomplicated (principal) | CPT/HCPCS: 87070; 87205 ==

== ENCOUNTER 2021-08-24 21:45 | Inpatient (IN) | payer MEDICARE, OTHER ==
[~2021-08-24] VITALS: Ht 157.5 cm; Wt 50.6 kg
[2021-08-24] MEDS ORDERED: BENZ100A PO (22:16)
[2021-08-24] MEDS ORDERED: ALDACTONE (22:16)
[2021-08-24] MEDS ORDERED: AMIODARONE HCL100 M3 (22:17)
[2021-08-24] MEDS ORDERED: [UNRECOGNIZED DRUG - OTHER] (22:18)
[2021-08-24] MEDS ORDERED: ELIQUIS2.5 MG PO (22:19)
[2021-08-24 22:40] LABS: BASOPHILS ABSOLUTE AUTO 0.02 K/mm3 (0.00-0.23); BASOPHILS PERCENT AUTO 0 % (0-2); EOSINOPHILS ABSOLUTE AUTO 0.01 K/mm3 (0.00-0.68); EOSINOPHILS PERCENT AUTO 0 % (0-6); Hematocrit 41.3 % (33.0-51.0); Hemoglobin 13.4 g/dL (11.5-16.0); IMMATURE GRAN ABSOLUTE AUTO 0.02 K/mm3 (0.00-0.10); IMMATURE GRAN PERCENT AUTO 0 % (0-1); LYMPHOCYTES ABSOLUTE AUTO 0.84 K/mm3 (0.84-5.20); LYMPHOCYTES PERCENT AUTO 13 % (21-46); MONOCYTES ABSOLUTE AUTO 0.99 K/mm3 (0.16-1.47); MONOCYTES PERCENT AUTO 15 % (4-13); Mean Corpuscular HGB 29.2 pg (26.0-34.0); Mean Corpuscular HGB Conc 32.4 g/dL (31.5-36.5); Mean Corpuscular Volume 90 fL (80-100); Mean Platelet Volume 11.1 fL (9.1-12.4); NEUTROPHILS PERCENT AUTO 72 % (41-73); Platelet Count 197 K/mm3 (150-400); RDW Coefficient Variation 15.3 % (11.7-14.2); RDW Standard Deviation 50.4 fL (35.1-46.3); Red Blood Cell Count 4.59 M/mm3 (3.80-5.20); White Blood Cell Count 6.68 K/mm3 (4.00-11.30)
[2021-08-24 22:57] LABS: Albumin, Blood 3.3 g/dL (3.4-5.0); Albumin/Globulin Ratio 0.7 (0.8-1.8); Bilirubin, Total 0.7 mg/dL (0.1-1.0); Bun/Creatinine Ratio 19.5 (12.0-20.0); Calcium, Blood 9.1 mg/dL (8.5-10.1); Creatinine, Blood 1.28 mg/dL (0.40-1.00); Globulin, Blood 4.9 g/dL (2.2-4.0); Potassium, Blood 4.6 mmol/L (3.5-5.5); Total Protein, Blood 8.2 g/dL (6.4-8.2); Troponin I 0.037 ng/mL (0.000-0.040)
[2021-08-25] MEDS ORDERED: IPRATROPIUM BRO30 ML (02:05)
[2021-08-25] MEDS ORDERED: SPIRIVA RESPIMAT4 G3 INH (02:07)
[2021-08-25] MEDS ORDERED: SPIR25 PO (02:09)
[2021-08-25] MEDS ORDERED: ASACOL HD800 MG PO (02:11)
--- NOTE | 2021-08-25 05:03 | NUR ---
PATIENT IS AN 87 YEAR OLD FEMALE ADMITTED FOR WEAKNESS. PATIENT IS A&OX4. ABLE TO MAKE NEEDS KNOWN. PATIENT HAS A HX OF BRADYCARDIA OF AFIB. BRADYCARDIA RATE RUNNING BETWEEN 45 AND 49. PATIENT AMBULATES INDEPENDENTLY BUT NEEDS SUPERVISION WHEN UP BECAUSE OF WEAKNESS. PATIENT C/O HEADACHE. TYLENLOL 650MG PRN ADMINISTERED TO PATIENT PER EMAR.PATIENT'S BED IS IN THE LOWEST POSITION, CALL LIGHT WITHIN REACH.
[2021-08-25 06:28] LABS: BASOPHILS ABSOLUTE AUTO 0.02 K/mm3 (0.00-0.23); BASOPHILS PERCENT AUTO 0 % (0-2); EOSINOPHILS PERCENT AUTO 0 % (0-6); Hematocrit 41.6 % (33.0-51.0); Hemoglobin 13.2 g/dL (11.5-16.0); IMMATURE GRAN ABSOLUTE AUTO 0.04 K/mm3 (0.00-0.10); IMMATURE GRAN PERCENT AUTO 0 % (0-1); LYMPHOCYTES ABSOLUTE AUTO 0.76 K/mm3 (0.84-5.20); LYMPHOCYTES PERCENT AUTO 8 % (21-46); MONOCYTES ABSOLUTE AUTO 0.89 K/mm3 (0.16-1.47); MONOCYTES PERCENT AUTO 9 % (4-13); Mean Corpuscular HGB 29.3 pg (26.0-34.0); Mean Corpuscular HGB Conc 31.7 g/dL (31.5-36.5); Mean Corpuscular Volume 92 fL (80-100); Mean Platelet Volume 10.5 fL (9.1-12.4); NEUTROPHILS ABSOLUTE AUTO 8.39 K/mm3 (1.96-9.15); NEUTROPHILS PERCENT AUTO 83 % (41-73); Platelet Count 164 K/mm3 (150-400); RDW Coefficient Variation 15.1 % (11.7-14.2); RDW Standard Deviation 51.8 fL (35.1-46.3)
--- NOTE | 2021-08-25 06:33 | NUR ---
TELE CHANGES CALL FROM [employer] AROUND 0530 THAT PT WAS HAVING CHANGE ON TELE. PT WENT FROM AND INVERTED T WAVE TO AN ELEVATED T WAVE IN THE V1 LEAD. EKG DONE ON PT WHICH DID SHOW T WAVE ABNORMALITY. VITALS ARE STABLE, AND PT IS DENING CHEST PAIN. DR. AUSTIN CALLED AND NOTIFIED. NO ORDERS GIVEN AT THIS TIME. DR. AUSTIN TO REVIEW PT CHART.
[2021-08-25 07:03] LABS: Albumin/Globulin Ratio 0.7 (0.8-1.8); Bilirubin, Total 0.6 mg/dL (0.1-1.0); Calcium, Blood 8.7 mg/dL (8.5-10.1); Creatinine, Blood 1.26 mg/dL (0.40-1.00); Globulin, Blood 4.6 g/dL (2.2-4.0); Potassium, Blood 4.7 mmol/L (3.5-5.5); Total Protein, Blood 7.6 g/dL (6.4-8.2); Troponin I 2.67 ng/mL (0.000-0.040)
[2021-08-25 09:22] LABS: International Normalized Ratio 1.11; Prothrombin Time Results 11.6 Sec (9.7-11.5)
[2021-08-25 15:21] LABS: Source, Urine Clean Catch
[2021-08-25 15:32] LABS: Appearance, Urine Clear (Clear); Bilirubin, Urine Neg (Neg); Blood, Urine 1+ (Neg); Color, Urine Yellow (P-Yellow); Glucose Qualitative, Urine Neg (Neg); Ketones, Urine Neg (Neg); Leukocyte Esterase, Urine 1+ (Neg); Nitrite, Urine Neg (Neg); Protein, Urine 2+ (Neg); Urobilinogen, Urine NORM (Normal)
[2021-08-25 16:12] LABS: Troponin I 2.16 ng/mL (0.000-0.040)
[2021-08-25 16:43] LABS: Bacteria Many /hpf; Red Blood Cells, Urine Rare /hpf (0-2); Squamous Epithelial Cells Few /hpf (Few)
--- NOTE | 2021-08-25 20:24 | NUR ---
SUMMARY- PT A/O X4, CALLS FOR NEEDS. AMBULATES TO BATHROOM SBA. DENIED CHEST PAIN OR PRESURE ALL DAY. VSS, TELE FIRST DEGREE WITH BBB RATE 64-74. CARDIO CONSULD YFN EVALUATED THIS AM. PLAN FOR ANGIO WED AM, DELAYED BECAUSE ELOQUIS WAS TAKEN AT HOME BY PT PM 08/24. HEPARIN GTT STARTED AND PT ABLE TO HAVE CARDIAC DIET. TOLERATING FOOD AND FLUIDS. COMPLETED 1L OF NS.
[2021-08-26 05:39] LABS: Hematocrit 36.6 % (33.0-51.0); Hemoglobin 11.5 g/dL (11.5-16.0)
[2021-08-26 05:57] LABS: Albumin, Blood 2.5 g/dL (3.4-5.0); Albumin/Globulin Ratio 0.6 (0.8-1.8); Bilirubin, Total 0.7 mg/dL (0.1-1.0); Bun/Creatinine Ratio 16.3 (12.0-20.0); Calcium, Blood 8.4 mg/dL (8.5-10.1); Creatinine, Blood 1.23 mg/dL (0.40-1.00); Globulin, Blood 3.9 g/dL (2.2-4.0); Potassium, Blood 4.3 mmol/L (3.5-5.5); Total Protein, Blood 6.4 g/dL (6.4-8.2)
--- NOTE | 2021-08-26 07:41 | NUR ---
PT IS A&OX4. VITAL SIGNS ARE STABLE. PT'S HEPARIN IV WAS DISCONTINUED BY DOCTOR. PT'S IV SITE WAS ACCIDENTALLY REMOVED SO NEW IV WAS INSERTED ON RIGHT ARM. PT'S APPT WAS ELEVAED AT 64.2.PT IS SLEEPING, BED IN LOWEST POSITION, CALL LIGHT WITHIN PT'S REACH.
--- NOTE | 2021-08-26 15:52 | NUR ---
SUMMARY: PT IS A/O, VSS. PT HAS DENIED DIZZINESS, CP TODAY. UP TO BATHROOM WITH SBA. TELE SR @64. HEPARIN DRIP STOPPED AT 0720 THIS MORNING BY KRISTINE RN, PT SALINE LOCKED. PLAN IS FOR ANGIOGRAM TOMORROW, NPO AT 0000. TROPONIN IS TRENDING DOWN, ORDERED FOR Q6. NO ACUTE SAFETY CONCERNS, WILL CTM AND REPORT TO KRISTINE FELIX.
--- NOTE | 2021-08-27 06:23 | NUR ---
PATIENT SUMMARY PATIENT IS ALERT AND ORIENTED X4. VS STABLE FOR PATIENT ON RA. PATIENT NPO AFTER MIDNIGHT FOR POSSIBLE PROCEDURE. PATIENT AWARE OF PROCEDURE PROCESS AND WILL SIGN CONCENT FORM WITH MD. ALL MEDICATIONS AND CARE GIVEN COMPLETED ORDERED ACCORDING TO NURSING JUDGEMENT. ALL UNFINNISHED CARES ENDORSED TO ONCOMING RN.
[2021-08-27 12:14] LABS: SARS-Cov-2 (COVID-19) PCR, MMC NEGATIVE (NEGATIVE)
--- NOTE | 2021-08-27 14:34 | NUR ---
PT IS AO X 4,PT WENT FOR A PROCEDURE IN THE EGG GRADER,AFTER PROCEDURE PT WILL BE TRANSFERED TO U 6,CALL RN AND GAVE REPORT.
--- NOTE | 2021-08-27 16:26 | NUR ---
PT BROUGHT TO HEART CENTER RECOVERY ROOM UNTIL ICU BED BECOMES AVAIL AFTER CORONARY ANGIOGRAM. AT END OF THE PROCEDURE PATIENT BECOME UNRESPONSIVE, ASYSTOLE ON WINERY WORKER. CPR INITIATED FOR ONLY APPROX 15-20 SECONDS. RHYTHM RETURNS, PACING ON ZOLL STARTED. ATROPINE GIVEN, DOPAMINE STARTED AT 10MCG/KG/MIN. R FEM SITE PREPPED FOR TEMP PACER. TEMP PACER IN PLACE. HEMATOMA NOTED AT R FEM SITE. PRESSURE HELD X 30 MIN TOTAL. FEM STOP IN PLACE X 1 HR. PT NOT TOLERATING WELL. FEM STOP REMOVED. PT CONTINUES TO MOVE ABOUT IN BED. ATIVAN GIVEN PER ORDERS. TOLERATES WELL. VSS. CONTINUES MONITORING IN PLACE.
--- NOTE | 2021-08-27 17:26 | NUR ---
PT ADMITTED TO ICU 8 FROM PIANO SOUNDING BOARD MATCHER POST ANGIOGRAM/TEMP VENOUS PACER. TR BAND TO R WRIST, CIRC CHECK WNL. TEMP VENOUS PACER TO R GROIN. MARKINGS COILED UNDER DRSG, CATH MARKED W PERM MARKER ON THIGH. PT IS NOT BEING PACED AT THIS TIME. PT'S HEART RATE IS SINUS 80-90'S. PACER IS SET AT 60, 3MV, 3MA. PT TO GO TO [facility] SOUNDING BOARD MATCHER IN AM FOR PERM PACER. PT UNABLE TO HOLD STILL/RESTLESS BODY MOVEMENTS. PT ORIENTED TO SELF AND SITUATION BUT HAS VERY CONFUSED CONVERSATION AND MAY POSSIBLY BE HALLUCINATING. SHEET OVER RIGHT KNEE IN ATTEMPT TO KEEP RIGHT LEG STILL. BP STABLE. DR COULTER AT BEDSIDE, GIVEN FULL UPDATE.
--- NOTE | 2021-08-27 18:19 | NUR ---
R GROIN REMAINS STABLE, PT LESS RESTLESS, AND LESS CONFUSED. PT'S UPDATED. PT REMAINS IN INTRINSIC RHYTHM W RATE 80-90'S.
--- NOTE | 2021-08-27 18:41 | NUR ---
4CC AIR REMOVED FROM TR BAND. AIR REMOVED AT SLOWER RATE PT WAS MOVING FREQUENTLY AND FORGETFUL, MOVING AND LEANING ON R ARM/WRIST. PT MUCH MORE CLAM NOW, AND IT IS SAFE TO START REMOVING AIR. R GROIN REMAINS STABLE AND UNCHANGED.
[2021-08-27 19:44] LABS: BASOPHILS ABSOLUTE AUTO 0.02 K/mm3 (0.00-0.23); BASOPHILS PERCENT AUTO 0 % (0-2); EOSINOPHILS PERCENT AUTO 0 % (0-6); Hematocrit 35.4 % (33.0-51.0); Hemoglobin 11.1 g/dL (11.5-16.0); IMMATURE GRAN ABSOLUTE AUTO 0.03 K/mm3 (0.00-0.10); IMMATURE GRAN PERCENT AUTO 0 % (0-1); LYMPHOCYTES ABSOLUTE AUTO 0.48 K/mm3 (0.84-5.20); LYMPHOCYTES PERCENT AUTO 6 % (21-46); MONOCYTES ABSOLUTE AUTO 0.91 K/mm3 (0.16-1.47); MONOCYTES PERCENT AUTO 12 % (4-13); Mean Corpuscular HGB 28.9 pg (26.0-34.0); Mean Corpuscular HGB Conc 31.4 g/dL (31.5-36.5); Mean Corpuscular Volume 92 fL (80-100); Mean Platelet Volume 10.4 fL (9.1-12.4); NEUTROPHILS ABSOLUTE AUTO 6.26 K/mm3 (1.96-9.15); NEUTROPHILS PERCENT AUTO 81 % (41-73); Platelet Count 144 K/mm3 (150-400); RDW Coefficient Variation 15.7 % (11.7-14.2); RDW Standard Deviation 52.7 fL (35.1-46.3); Red Blood Cell Count 3.84 M/mm3 (3.80-5.20)
[2021-08-27 20:10] LABS: Alanine Aminotransfer (ALT/SGP 103 U/L (12-78); Albumin, Blood 2.7 g/dL (3.4-5.0); Albumin/Globulin Ratio 0.7 (0.8-1.8); Alk Phos 68 U/L (50-136); Anion Gap 6 mmol/L (6-16); Aspartate Aminotrans (AST/SGOT 76 U/L (12-37); Bilirubin, Direct 0.2 mg/dL (0.0-0.3); Bilirubin, Indirect 0.5 mg/dL (0.1-0.7); Bilirubin, Total 0.7 mg/dL (0.1-1.0); Blood Urea Nitrogen 15 mg/dL (8-24); Bun/Creatinine Ratio 14.7 (12.0-20.0); CO2, Blood 27 mmol/L (21-32); Calcium, Blood 8.5 mg/dL (8.5-10.1); Chloride, Blood 107 mmol/L (98-108); Creatinine, Blood 1.02 mg/dL (0.40-1.00); Globulin, Blood 3.9 g/dL (2.2-4.0); Glomerular Filtration Rate 51 (60-); Glucose, Blood 92 mg/dL (70-99); Phosphorus, Blood 3.2 mg/dL (2.5-4.9); Potassium, Blood 4.5 mmol/L (3.5-5.5); Sodium, Blood 140 mmol/L (136-145); Total Protein, Blood 6.6 g/dL (6.4-8.2)
--- NOTE | 2021-08-27 20:52 | NUR ---
ASSUMPTION OF CARE PT WAKENS WITH VERBAL STIMULI. PT ON 2L VIA NC. R RADIAL TR BAND IN PLACE, BRUISING AROUND SITE AND CURRENTLY DEFLATING TR BAND IN INTERVALS. TRANSVENOUS PACER PLACED IN R GROIN, SITE WNL. TRANSVENOUS PACER SET WITH BACK UP RATE OF 60 AND 3MILLIVOLTS OUTPUT. SEE SHIFT ASSESSMENT.
--- NOTE | 2021-08-28 05:34 | NUR ---
SHIFT SUMMARY PT SLEPT FOR MOST OF THE NIGHT, WAKING DURING CARE. PT IS ORIENTED AND COMPLIANT WITH CARE. TR BAND REMOVED AT 0100, OPSITE IN PLACE. NO SIGNS OF BLEEDING, ARM BOARD REMAINS IN PLACE. TRANSVENOUS PACER INSERTION SITE REMAINS UNCHANGED AND IN SAME POSITION. SURROUNDING AREA IS SOFT AND NONTENDER. PT HAD 550ML URINE OUTPUT THIS SHIFT. NPO SINCE MIDNIGHT. WILL REPORT TO ONCOMING RN.
[2021-08-28 07:15] LABS: BASOPHILS ABSOLUTE AUTO 0.02 K/mm3 (0.00-0.23); BASOPHILS PERCENT AUTO 0 % (0-2); EOSINOPHILS ABSOLUTE AUTO 0.02 K/mm3 (0.00-0.68); EOSINOPHILS PERCENT AUTO 0 % (0-6); Hematocrit 34.9 % (33.0-51.0); Hemoglobin 11.2 g/dL (11.5-16.0); IMMATURE GRAN ABSOLUTE AUTO 0.02 K/mm3 (0.00-0.10); IMMATURE GRAN PERCENT AUTO 0 % (0-1); LYMPHOCYTES ABSOLUTE AUTO 0.57 K/mm3 (0.84-5.20); LYMPHOCYTES PERCENT AUTO 8 % (21-46); MONOCYTES ABSOLUTE AUTO 0.92 K/mm3 (0.16-1.47); MONOCYTES PERCENT AUTO 14 % (4-13); Mean Corpuscular HGB 29.6 pg (26.0-34.0); Mean Corpuscular HGB Conc 32.1 g/dL (31.5-36.5); Mean Corpuscular Volume 92 fL (80-100); Mean Platelet Volume 10.5 fL (9.1-12.4); NEUTROPHILS ABSOLUTE AUTO 5.29 K/mm3 (1.96-9.15); NEUTROPHILS PERCENT AUTO 77 % (41-73); Platelet Count 126 K/mm3 (150-400); RDW Coefficient Variation 15.7 % (11.7-14.2); RDW Standard Deviation 52.9 fL (35.1-46.3); Red Blood Cell Count 3.79 M/mm3 (3.80-5.20); White Blood Cell Count 6.84 K/mm3 (4.00-11.30)
[2021-08-28 07:33] LABS: Anion Gap 6 mmol/L (6-16); Blood Urea Nitrogen 13 mg/dL (8-24); Bun/Creatinine Ratio 14.9 (12.0-20.0); CO2, Blood 24 mmol/L (21-32); Calcium, Blood 7.6 mg/dL (8.5-10.1); Chloride, Blood 111 mmol/L (98-108); Creatinine, Blood 0.87 mg/dL (0.40-1.00); Glomerular Filtration Rate >60 (60-); Glucose, Blood 65 mg/dL (70-99); Potassium, Blood 3.5 mmol/L (3.5-5.5); Sodium, Blood 141 mmol/L (136-145)
--- NOTE | 2021-08-28 08:46 | NUR ---
DR COULTER IN TO SEE PATIENT DR COULTER HERE, PLANS TO TAKE PATIENT BACK TO FIELD PROFESSIONAL FOR PERM PACEMAKER PLACEMENT THIS AFTERNOON. PATIENT REFUSING MAJORITY OF AM MEDS EXCEPT AMIODARONE AND PLAVIX-YFN IN ROOM AND AWARE. PRIMAR RN ESTEBAN REPORTED AM CBG LOW AND PATIENT TO DRINK APPLEJUICE-WILL RECHECK BG. PRIMARY RN UPDATED.
--- NOTE | 2021-08-28 10:39 | NUR ---
CARE ASSUMED OF PT AT 0700. PT SLEEPING IN BED THIS AM IN SUPINE POSITION D/T TEMP VENOUS PACER TO RIGHT FEM. PT AWAKENS TO VOICE AND DENIED C/O PAIN. R GROIN SITE DRSG C/D/I, AREA SOFT, WITHOUT BLEEDING OR HEMOTOMA, MILDLY TENDER W PALP. PT REMAINS IN INTRINSIC RHYTHM AT 80-90; SINUS. VENOUS PACER SET AT 60, 3MV,3MA. BP STABLE. AFEBRILE. CIRC CHECK TO BLE WNL. TR BAND SITE STABLE. AREA SOFT NONTENDER W OPSITE C/D/I. WRIST IMMOBILIZER ON. PT TO TUCK POINTER FOR PERM PACE MAKER AT 1038.
--- NOTE | 2021-08-28 13:29 | NUR ---
Report in person received from ELVIRA Ken. Tyree Lindo RN called and pt is on the way to PCU 6 from the dental laboratory technician apprentice post cardiac pacemaker placement.
--- NOTE | 2021-08-28 13:40 | NUR ---
REceived the pt from the [facility] [employer], bedside report received from Tyree Lindo RN. The pt is awake, alert and oriented, states her back is aching. Assisted to reposition to her right side with PICKING BELT OPERATOR assisting. Instructed to keep her head down, and legs straight for one hour. The venous sheath was removed in [employer], Tyree reported, from the right groin. Right groin site is without bleeding, bruising, nor evidence of hematoma. Left chest wall pressure dressing is clean, dry and intact. No evidence of bleeding, bruising nor significant swelling at this time. Normal sinus rhythm on telemetry, rate 82 bpm. Tyree RN states that she is not pacemaker dependent at this time.
--- NOTE | 2021-08-28 13:45 | NUR ---
PT TRANSFERED FROM [facility] TO [facility] POST PROCEDURE. BEDSIDE REPORT GIVEN TO PHYLLIS FELIX. PT'S CALLED AND UPDATED W PT'S PERMISSION. BELONGINGS BROUGHT TO PCU 6.
--- NOTE | 2021-08-28 14:10 | NUR ---
electronic systems technician here to do chest xray. Post pacer EKG was completed, result placed in the pt's paper chart.
--- NOTE | 2021-08-28 15:36 | NUR ---
Dr. Barnett here to see the patient at this time. Regular diet ordered
[2021-08-29 05:15] LABS: BASOPHILS ABSOLUTE AUTO 0.01 K/mm3 (0.00-0.23); BASOPHILS PERCENT AUTO 0 % (0-2); EOSINOPHILS ABSOLUTE AUTO 0.01 K/mm3 (0.00-0.68); EOSINOPHILS PERCENT AUTO 0 % (0-6); Hematocrit 31.6 % (33.0-51.0); IMMATURE GRAN ABSOLUTE AUTO 0.03 K/mm3 (0.00-0.10); IMMATURE GRAN PERCENT AUTO 0 % (0-1); LYMPHOCYTES PERCENT AUTO 7 % (21-46); MONOCYTES ABSOLUTE AUTO 1.12 K/mm3 (0.16-1.47); MONOCYTES PERCENT AUTO 15 % (4-13); Mean Corpuscular HGB 29.2 pg (26.0-34.0); Mean Corpuscular HGB Conc 31.6 g/dL (31.5-36.5); Mean Corpuscular Volume 92 fL (80-100); Mean Platelet Volume 10.7 fL (9.1-12.4); NEUTROPHILS PERCENT AUTO 78 % (41-73); Platelet Count 128 K/mm3 (150-400); RDW Coefficient Variation 15.5 % (11.7-14.2); RDW Standard Deviation 52.2 fL (35.1-46.3); Red Blood Cell Count 3.43 M/mm3 (3.80-5.20); White Blood Cell Count 7.47 K/mm3 (4.00-11.30)
[2021-08-29 06:03] LABS: Albumin, Blood 2.4 g/dL (3.4-5.0); Anion Gap 7 mmol/L (6-16); Blood Urea Nitrogen 13 mg/dL (8-24); Bun/Creatinine Ratio 12.1 (12.0-20.0); CO2, Blood 24 mmol/L (21-32); Calcium, Blood 8.1 mg/dL (8.5-10.1); Chloride, Blood 105 mmol/L (98-108); Creatinine, Blood 1.07 mg/dL (0.40-1.00); Glomerular Filtration Rate 49 (60-); Glucose, Blood 114 mg/dL (70-99); Phosphorus, Blood 3.2 mg/dL (2.5-4.9); Potassium, Blood 4.5 mmol/L (3.5-5.5); Sodium, Blood 136 mmol/L (136-145)
--- NOTE | 2021-08-29 06:45 | NUR ---
SHIFT SUMMARY PATIENT IS RESITING IN BED COMFORTABLY. BED IS IN LOW POSITION. CALL LIGHT IS IN REACH. PATIENT COMPLINED OF SORENESS AND PAIN MEDICATION WAS GIVEN SEE EMAR. R RADIAL AND R GROIN SITE LOOK CDI. LEFT SHOULDER IS SORE AND THE DRESSING IN CDI. VITALS HAVE BEEN STABLE ALL NIGHT. PATIENT WAS ABLE TO USE BSC WITH ASSISTANCE. PATIENT IS IMPROVING. PATIENT COMPLAINS OF GENERALIZED TREMORS SHE CAME IN WITH BUT GOT WORSE. INFORMED PATIENT DAY SHIFT RN WILL BE INFORMED SO SHE CAN INFORM THE DOCTOR. REPORT WILL BE GIVEN TO DAY SHIFT RN. WILL CONTINUE TO MONITOR.
--- NOTE | 2021-08-29 10:16 | NUR ---
Dr. Barnett here to see the patient. He removed the pressure dressing over the surgical site on the left anterior chest, and applied a non-adherent dressing and secured it with sterile tegederm. The pt reports that the Tylenol given about an hour ago has decreased her pain at the surgical site. states that the clindamycin is prophylactic post surgery. Confirmed pt's understanding of activity restrictions post-op as well as iinstructions to keep the wound clean and dry ( no showers) until the wound check appointment in a week. Pt verbalized understanding of this. Resident attending physician called to report above information. She requested info about pt's eliquis, and Dr. Barnett stated that he recommends eliquis and 81 mg aspirin, discontinue plavix going forward.
[2021-08-29] MEDS ORDERED: CLIN150 PO (14:30)
[2021-08-29] MEDS ORDERED: ASPI81CH PO (14:30)
[2021-08-29] MEDS ORDERED: NITR.4SL SL (14:31)
[2021-08-29] MEDS ORDERED: METO25 PO (14:31)
== END 2021-08-29 15:30 | disposition home or self-care (01) | DRG 242 ==
LOC: ER 21:45 → MEDS 21:46 → PCU 08-26 09:23 → MEDS 08-26 09:24 → PCU 08-27 13:11 → MEDS 08-27 15:36 → ICUE 08-27 15:40 → PCU 08-28 13:34
PROVIDERS: Emergency Medicine; Internal Medicine Cardiovascular Disease; Pharmacist; Student in an Organized Health Care Education/Training Program; ADMIT Internal Medicine
PROC: 5A12012 Performance of Cardiac Output, Single, Manual (ICD-10-PCS; 2021-08-26)
PROC: 02703ZZ Dilation of Coronary Artery, One Artery, Percutaneous Approach (ICD-10-PCS; 2021-08-27)
PROC: 4A033BC Measurement of Arterial Pressure, Coronary, Percutaneous Approach (ICD-10-PCS; 2021-08-27)
PROC: 0JH606Z Insertion of Pacemaker, Dual Chamber into Chest Subcutaneous Tissue and Fascia, Open Approach (ICD-10-PCS; principal; 2021-08-28)
PROC: 02HK3JZ Insertion of Pacemaker Lead into Right Ventricle, Percutaneous Approach (ICD-10-PCS; 2021-08-28)
PROC: 02H63JZ Insertion of Pacemaker Lead into Right Atrium, Percutaneous Approach (ICD-10-PCS; 2021-08-28)
DX: I16.0 Hypertensive urgency (principal); I21.4 Non-ST elevation (NSTEMI) myocardial infarction; A31.0 Pulmonary mycobacterial infection; I48.0 Paroxysmal atrial fibrillation; M19.90 Unspecified osteoarthritis, unspecified site; E03.9 Hypothyroidism, unspecified; I12.9 Hypertensive chronic kidney disease with stage 1 through stage 4 chronic kidney disease, or unspecified chronic kidney disease; N18.2 Chronic kidney disease, stage 2 (mild); D63.1 Anemia in chronic kidney disease; Z20.822 Contact with and (suspected) exposure to COVID-19; I49.5 Sick sinus syndrome; Z85.3 Personal history of malignant neoplasm of breast; Z86.73 Personal history of transient ischemic attack (TIA), and cerebral infarction without residual deficits; Z90.12 Acquired absence of left breast and nipple; Z98.41 Cataract extraction status, right eye; Z98.890 Other specified postprocedural states; Z87.891 Personal history of nicotine dependence; Z88.0 Allergy status to penicillin; Z88.5 Allergy status to narcotic agent; Z79.01 Long term (current) use of anticoagulants; Z79.899 Other long term (current) drug therapy
CPT/HCPCS: 33208; 33210; 36415; 70450; 71045; 76937; 80048; 80053; 80069; 81001; 82248; 82550; 82947; 84484; 85014; 85018; 85025; 85347; 85610; 85730; 87086; 92920; 93005; 93010; 93454; 93571; 93572; 96374; 96375; 99152; 99153; 99285-25; A9270; C1725; C1769; C1781; C1785; C1887; C1894; C1898; C8929; G0378; J0153; J0461; J1265; J1644; J2060; J2250; J2270; J2370; J2405; J3010; J3370; J7030; J7040; J7050; Q9957; Q9967; U0004